=== PATIENT | male | born 1960 | race Two or more races ===

== ENCOUNTER 2016-11-29 17:15 | Emergency (ER) | payer OTHER ==
[~2016-11-29 17:15] MED LIST: ADVAIR HFA 230/1 AER IH; ALTACE2.5 MG PO; ASPI-COR81 M2 PO; ATORVASTATIN CA80 M1 PO; CARVEDILOL12.5 M1 PO; COR200 PO; EFFIENT10 M1 PO; EPLERENONE25 MG PO; LASIX40 MG PO; METFORMIN500 M1 PO
[2016-11-29 20:20] VITALS: BP 140/83
== END 2016-11-29 20:20 | disposition home or self-care (01) ==
LOC: ED 17:15
DX: S46.911A Strain of unspecified muscle, fascia and tendon at shoulder and upper arm level, right arm, initial encounter (principal); I10 Essential (primary) hypertension; E11.9 Type 2 diabetes mellitus without complications; E78.5 Hyperlipidemia, unspecified; X58.XXXA Exposure to other specified factors, initial encounter; Y93.89 Activity, other specified; Y99.8 Other external cause status; Y92.89 Other specified places as the place of occurrence of the external cause

== ENCOUNTER 2017-04-02 19:50 | Emergency (ER) | payer OTHER ==
[~2017-04-02] VITALS: Ht 170.2 cm; Wt 74.4 kg
[2017-04-02 20:02] VITALS: Ht 170.2 cm; Wt 74.4 kg
[2017-04-02 21:48] VITALS: BP 142/91
== END 2017-04-02 21:48 | disposition left against medical advice (07) ==
LOC: ED 19:50
DX: S50.12XA Contusion of left forearm, initial encounter (principal); S09.90XA Unspecified injury of head, initial encounter; E78.00 Pure hypercholesterolemia, unspecified; I10 Essential (primary) hypertension; E11.9 Type 2 diabetes mellitus without complications; M54.2 Cervicalgia; I25.10 Atherosclerotic heart disease of native coronary artery without angina pectoris; Z98.61 Coronary angioplasty status; W10.9XXA Fall (on) (from) unspecified stairs and steps, initial encounter; Y93.89 Activity, other specified; Y99.8 Other external cause status; Y92.89 Other specified places as the place of occurrence of the external cause
CPT/HCPCS: 90715

== ENCOUNTER 2018-10-01 11:22 | Emergency (ER) | payer OTHER ==
[~2018-10-01] VITALS: Ht 165.1 cm; Wt 68.0 kg
[2018-10-01 11:49] VITALS: Ht 165.1 cm; Wt 68.0 kg
[2018-10-01 14:10] VITALS: BP 164/84
== END 2018-10-01 14:10 | disposition home or self-care (01) ==
LOC: ED 11:22
DX: S01.122A Laceration with foreign body of left eyelid and periocular area, initial encounter (principal); I10 Essential (primary) hypertension; E11.9 Type 2 diabetes mellitus without complications; E78.00 Pure hypercholesterolemia, unspecified; I25.2 Old myocardial infarction; W18.09XA Striking against other object with subsequent fall, initial encounter; Y93.89 Activity, other specified; Y92.89 Other specified places as the place of occurrence of the external cause; Y99.8 Other external cause status
CPT/HCPCS: 12053; 90715; J2001

== ENCOUNTER 2018-10-08 11:10 | Emergency (ER) | payer OTHER ==
[~2018-10-08] VITALS: Ht 165.1 cm; Wt 67.6 kg
[2018-10-08 11:12] VITALS: Ht 165.1 cm; Wt 67.6 kg
[2018-10-08 11:54] VITALS: BP 155/84
== END 2018-10-08 11:54 | disposition home or self-care (01) ==
LOC: ED 11:10
DX: T81.31XA Disruption of external operation (surgical) wound, not elsewhere classified, initial encounter (principal); S01.81XD Laceration without foreign body of other part of head, subsequent encounter; I10 Essential (primary) hypertension; E11.9 Type 2 diabetes mellitus without complications; I25.2 Old myocardial infarction; E78.00 Pure hypercholesterolemia, unspecified; X58.XXXD Exposure to other specified factors, subsequent encounter